=== PATIENT | male | born 1985 | race Caucasian/White ===

== ENCOUNTER 2020-01-05 18:27 | Emergency (ER) | payer SELFPAY ==
[~2020-01-05] VITALS: Ht 162.6 cm; Wt 81.6 kg
[2020-01-05 18:27] VITALS: BP_SYST 140
--- NOTE | 2020-01-05 18:27 | NUR ---
Patient triaged and placed in waiting room. VSS and patient appears in no acute distress at this time. Accompanied by girlfriend, awaiting available bed, and MD notified of need for MSE.
[2020-01-06 08:47] LABS: BASOPHILS # (AUTO) 0.1 K/uL (0.0-0.2); BASOPHILS % (AUTO) 0.8 % (0.0-2.0); EOSINOPHILS # (AUTO) 0.3 K/uL (0.0-0.4); EOSINOPHILS % (AUTO) 3.7 % (0.0-4.0); HEMATOCRIT 44.9 % (36-54); HEMOGLOBIN 15.3 g/dL (14.0-18.0); LYMPHOCYTES # (AUTO) 2.9 K/uL (1.0-5.5); LYMPHOCYTES % (AUTO) 31.1 % (20.5-51.5); MEAN CORPUSCULAR HEMOGLOBIN 31 pg (27-31); MEAN CORPUSCULAR HGB CONC 34 % (32-36); MEAN CORPUSCULAR VOLUME 92 fL (79.0-98.0); MONOCYTES # (AUTO) 0.8 K/uL (0.0-1.0); MONOCYTES % (AUTO) 8.3 % (1.7-9.3); NEUTROPHILS # (AUTO) 5.2 K/uL (1.8-7.7); NEUTROPHILS % (AUTO) 56.1 % (40.0-70.0); PLATELET COUNT (AUTO) 282 K/uL (130-430); RED CELL DISTRIBUTION WIDTH 13.2 % (9.0-15.0); WHITE BLOOD COUNT (AUTO) 9.4 K/uL (4.8-10.8)
[2020-01-06 13:49] LABS: ANION GAP < 3 (5-15); CHLORIDE 103 mmol/L (98-107); POTASSIUM 3.8 mmol/L (3.5-5.1); SODIUM SERUM 137 mmol/L (136-145)
[2020-01-06 13:50] LABS: ALANINE AMINOTRANSFERASE 64 U/L (12-78); ALBUMIN 3.8 g/dL (3.4-4.8); ASPARTATE AMINOTRANSFERASE 20 U/L (10-37); CALCIUM 9.1 mg/dL (8.4-11.0); CREATININE 1.12 mg/dL (0.55-1.30); GFR AFRICAN AMERICAN 98 mL/min (>90); GLUCOSE 86 mg/dL (70-99); TOTAL BILIRUBIN 0.3 mg/dL (0.0-1.0); UREA NITROGEN, BLOOD 10 mg/dL (8-21)
== END 2020-01-05 23:00 | disposition home or self-care (01) ==
LOC: SED 18:27
DX: R07.89 Other chest pain (principal); F17.200 Nicotine dependence, unspecified, uncomplicated
CPT/HCPCS: 36415; 71045; 80053; 84484; 85025; 93005; 99285

== ENCOUNTER 2020-02-12 00:22 | Emergency (ER) | payer SELFPAY ==
[~2020-02-12] VITALS: Ht 165.1 cm; Wt 81.6 kg
[2020-02-12 00:40] VITALS: BP_SYST 127
--- NOTE | 2020-02-12 00:40 | NUR ---
Patient to ER bed 5 to gown for evaluation. Side rails up. Report given to FERNANDO.
--- NOTE | 2020-02-12 00:44 | NUR ---
ER at bedside examining patient.
--- NOTE | 2020-02-12 00:45 | NUR ---
PT AAO AND WAS BIB FAMILY FOR PAIN ASSOCIATED WITH FALLING DOWN STAIRS. PT REPORTS HE WAS UNDER THE INFLUENCE AND FELL DOWN STAIRS AND NOW HAS 7/10 PAIN ON LEFT SIDE OF BODY. IT IS UNKNOWN IF PT LOST CONSCIOUSNESS.
--- NOTE | 2020-02-12 01:00 | NUR ---
Pt taken to CT via wheelchair.
--- NOTE | 2020-02-12 01:40 | NUR ---
Xray at bedside.
[2020-02-12] MEDS ORDERED: KETOROLAC TROMETHAMINE 60 MG/2 ML VIAL IM ONE (01:45)
[2020-02-12 02:16] VITALS: BP_SYST 127
--- NOTE | 2020-02-12 02:16 | NUR ---
Mother requesting to speak to MD Viridiana aware. Discussed results of CT scan and the plan of care that took place in ED.
--- NOTE | 2020-02-12 02:16 | NUR ---
Patient given written and verbal discharge instructions and verbalizes understanding. ER MD discussed with patient the results and treatment provided. Patient in stable condition. ID arm band removed. Rx of Motrin given. Patient educated on pain management and to follow up with PMD. Opportunity for questions provided and answered. Medication side effect fact sheet provided.
== END 2020-02-12 02:16 | disposition home or self-care (01) ==
LOC: SED 00:22
DX: S60.222A Contusion of left hand, initial encounter (principal); S09.90XA Unspecified injury of head, initial encounter; F12.90 Cannabis use, unspecified, uncomplicated; Z88.2 Allergy status to sulfonamides; W10.8XXA Fall (on) (from) other stairs and steps, initial encounter; Y93.89 Activity, other specified; Y92.89 Other specified places as the place of occurrence of the external cause; Y99.8 Other external cause status
CPT/HCPCS: 70450; 73130; 96372; 99284; J1885